=== PATIENT | female | born 1970 | race Caucasian/White ===

== ENCOUNTER 2017-03-09 08:54 | Emergency (ER) | payer OTHER ==
[2017-03-09 09:15] VITALS: BP 120/78
--- NOTE | 2017-03-09 10:59 | UC ---
FLU HPI - HPI Summary HPI Summary: Pt c/o sudden onset of nausea, vomiting and diarrhea 3 days ago that has since resolved. Pt now c/o nasal congestion, cough and "tightness in chest" X 3 days. - History of Current Complaint Chief Complaint: UCRespiratory Stated Complaint: SINUS/FLU LIKE SYMPTOMS Time Seen by Provider: 03/09/17 10:27 Hx Obtained From: Patient Hx Last Menstrual Period: 03/04/17 ?: No Onset/Duration: Sudden Onset, Lasting Days, Still Present Severity Currently: Mild Severity Initially: Moderate Pain Intensity: 8 Associated Signs & Symptoms: Positive: Fever, Myalgia, Vomiting, Diarrhea Related Hx: Possible Flu/Infectious Exposure - Allergy/Home Medications Allergies/Adverse Reactions: Allergies Allergy/AdvReac Type Severity Reaction Status Date / Time No Known Allergies Allergy Verified 03/09/17 09:09 Home Medications: Home Medications FLUoxetine CAP* [Prozac CAP*] 20 mg PO DAILY 03/09/17 [History Confirmed ] Omeprazole CAP* [Prilosec CAP* 20 MG] 20 mg PO DAILY 03/09/17 [History Confirmed 03/09/17] PMH/Surg Hx/FS Hx/Imm Hx Previously Healthy: Yes - Surgical History Surgical History: Yes Surgery Procedure, Year, and Place: , 2000, [place]; Uterine Fibroid, ~ 1997, [place]; Cholecystectomy, 1995, [place] - Family History Known Family History: Positive: Cardiac Disease - Social History Occupation: Employed Full-time Lives: With Family Alcohol Use: None Substance Use Type: None Smoking Status (MU): Former Smoker Length of Time of Smoking/Using Tobacco: 02/11 PPD x 10 Years Have You Smoked in the Last Year: No When Did the Patient Quit Smoking/Using Tobacco: ~1999 - Immunization History Most Recent Influenza Vaccination: none Vaccination Up to Date: No Review of Systems Constitutional: Fever, Chills, Fatigue Skin: Negative Eyes: Negative ENT: Sinus Congestion Respiratory: Shortness Of Breath, Cough Cardiovascular: Negative Gastrointestinal: Negative Genitourinary: Negative Motor: Negative Neurovascular: Negative Musculoskeletal: Myalgia Neurological: Negative Psychological: Negative Is Patient Immunocompromised?: No All Other Systems Reviewed And Are Negative: Yes Physical Exam Triage Information Reviewed: Yes Appearance: Ill-Appearing Vital Signs: Initial Vital Signs Temp 98.3 F 03/09/17 09:06 Pulse 76 03/09/17 09:06 Resp 16 03/09/17 09:06 BP 120/78 03/09/17 09:06 Pulse Ox 99 03/09/17 09:06 Vital Signs Reviewed: Yes Eye Exam: Normal ENT Exam: Other ENT: Positive: Nasal congestion Dental Exam: Normal Neck exam: Normal Respiratory Exam: Other Respiratory: Positive: Rhonchi Cardiovascular Exam: Normal Musculoskeletal Exam: Normal Neurological Exam: Normal Psychological Exam: Normal Skin Exam: Normal Flu Course/Dx - Course Course Of Treatment: RApid Flu A positive - Differential Dx/Diagnosis Differential Diagnosis/HQI/PQRI: Bronchitis, Influenza Provider Diagnoses: Influenza A. Bronchitis Discharge - Discharge Plan Condition: Stable Disposition: HOME Prescriptions: Albuterol HFA INHALER* [Ventolin HFA Inhaler*] 1 - 2 puff INH Q6H PRN #1 mdi PRN Reason: Sob/Wheezing Azithromycin TAB* [Zithromax TAB (Z-JESSICA) 250 mg #6 tabs] 2 tab PO .TODAY, THEN 1 DAILY #1 jessica Oseltamivir CAP* [Tamiflu CAP*] 75 mg PO Q12H #10 cap predniSONE TAB* [Deltasone TAB*] 30 mg PO DAILY #9 tab Patient Education Materials: Influenza (DC) Referrals: Javier Baker [Primary Care Provider] - If Needed
== END 2017-03-09 11:06 | disposition home or self-care (01) ==
LOC: UCCORT 08:54
DX: J09.X2 Influenza due to identified novel influenza A virus with other respiratory manifestations (principal); J40 Bronchitis, not specified as acute or chronic; Z87.891 Personal history of nicotine dependence
CPT/HCPCS: 87502; 99212; G0463